=== PATIENT | male | born 1985 ===

== ENCOUNTER 2017-12-08 13:52 | Emergency (ER) | payer BC ==
[2017-12-08 14:19] VITALS: BP 179/113
--- NOTE | 2017-12-08 14:47 | UC ---
Skin Complaint HPI - History of Current Complaint Chief Complaint: UCLowerExtremity Time Seen by Provider: 12/08/17 14:24 Stated Complaint: LEFT FOOT COMPLAINT Hx Obtained From: Patient Onset/Duration: Sudden Onset, Lasting Days Skin Exposure Onset/Duration: Days Ago Onset Severity: Mild Current Severity: Moderate Pain Intensity: 4 Location: Discrete, Foot (Left) Aggravating Factor(s): Nothing Alleviating Factor(s): Nothing Associated Signs & Symptoms: Positive: Negative - Allergy/Home Medications Allergies/Adverse Reactions: Allergies Allergy/AdvReac Type Severity Reaction Status Date / Time No Known Allergies Allergy Verified 12/08/17 14:19 Home Medications: Home Medications Cephalexin CAP* [Keflex CAP*] 500 mg PO QID 12/08/17 [History Confirmed 12/08/17 ] Dextroamphetamine/Amphetamine [Adderall Xr 20 mg Capsule] 40 mg PO DAILY [History Confirmed 12/08/17] Diclofenac 1% GEL (NF) [Voltaren 1% GEL (NF)] 1 applic TOPICAL BID PRN 12/08/17 [History Confirmed 12/08/17] Diclofenac Sodium EC TAB* [Voltaren EC TAB*] 75 mg PO BID PRN 12/08/17 [History Confirmed 12/08/17] Review of Systems Constitutional: Negative Musculoskeletal: Edema All Other Systems Reviewed And Are Negative: Yes PMH/Surg Hx/FS Hx/Imm Hx Previously Healthy: Yes Psychological History: Other - ADHD Other Psychological History: ADHD - Surgical History Surgical History: None - Social History Alcohol Use: Rare Substance Use Type: None Smoking Status (MU): Never Smoked Tobacco Physical Exam Triage Information Reviewed: Yes Appearance: Well-Appearing, Obese Vital Signs: Initial Vital Signs Temp 96.9 F 12/08/17 14:13 Pulse 88 12/08/17 14:13 Resp 16 12/08/17 14:13 BP 179/113 12/08/17 14:13 Pulse Ox 100 12/08/17 14:13 Vital Signs Reviewed: Yes Eyes: Positive: Conjunctiva Clear ENT: Positive: Hearing grossly normal Neck: Positive: Supple, Nontender, No Lymphadenopathy Respiratory: Positive: Chest non-tender, Lungs clear, Normal breath sounds, No respiratory distress Cardiovascular: Positive: RRR, No Murmur, Pulses Normal, Brisk Capillary Refill Musculoskeletal: Positive: Strength Intact, ROM Intact, Edema @ - second and third toes of left foot with erythema and edema of soft tissue up to dorsal aspect of foot near proximal metatarsal area Course/Dx - Course Course Of Treatment: stop cephalexin, and start clindamycin as prescribed. Mantain leg elevated. f/u with PCP for BP monitoring. - Diagnoses Provider Diagnoses: Foot cellulitis. HTN Discharge - Sign-Out/Discharge Documenting (check all that apply): Discharge/Admit/Transfer - Discharge Plan Condition: Good Disposition: HOME Prescriptions: Clindamycin HCl 300 mg PO TID 7 Days #21 capsule Patient Education Materials: Cellulitis (DC), Clindamycin (By mouth), Chronic Hypertension (ED) Referrals: Breanna Hansen NP [Primary Care Provider] - - Billing Disposition and Condition Condition: GOOD Disposition: Home
== END 2017-12-08 14:58 | disposition home or self-care (01) ==
LOC: UCEAST 13:52
DX: L03.116 Cellulitis of left lower limb (principal); I10 Essential (primary) hypertension; F90.9 Attention-deficit hyperactivity disorder, unspecified type
CPT/HCPCS: 99202; G0463